=== PATIENT | female | born 1970 | race Caucasian/White ===

== ENCOUNTER 2016-08-24 07:06 | Inpatient (IN) | payer OTHER ==
[~2016-08-24] VITALS: Ht 167.6 cm; Wt 69.9 kg
[2016-08-24 07:06] VITALS: BP 136/72; PULSE 77; RESP 16; TEMP 97.3; O2SAT 100
[2016-08-24] MEDS ORDERED: ASPIRIN 81 MG TAB.CHEW PO ONE (07:15)
--- NOTE | 2016-08-24 07:15 | NUR ---
Placed in room 05 . Placed on air sampling and monitoring, blood pressure machine and pulse oximeter. To gown for exam. Side rails up. Report given to Gloria Baird
--- NOTE | 2016-08-24 07:30 | NUR ---
Patient presents to the emergency department with complaints with sudden onset intermittent substernal nonradiating chest pressure with burning 01/18 which has since resolved during triage. denies SOB, n/v/d. pt states taking zantac and jesus seltzer this morning prior to arrival which may have helped.
[2016-08-24 07:51] LABS: BASOPHILS % (AUTO) 0.4 % (0.0-2.0); EOSINOPHILS # (AUTO) 0.2 K/uL (0.0-0.4); EOSINOPHILS % (AUTO) 2.9 % (0.0-4.0); HEMATOCRIT 38.3 % (36-48); HEMOGLOBIN 12.8 g/dL (12.0-16.0); LYMPHOCYTES % (AUTO) 29.8 % (20.5-51.5); MEAN CORPUSCULAR HEMOGLOBIN 28 pg (27-31); MEAN CORPUSCULAR HGB CONC 33 % (32-36); MEAN CORPUSCULAR VOLUME 84 fL (79.0-98.0); MONOCYTES # (AUTO) 0.5 K/uL (0.0-1.0); MONOCYTES % (AUTO) 7.8 % (1.7-9.3); NEUTROPHILS # (AUTO) 4.1 K/uL (1.8-7.7); NEUTROPHILS % (AUTO) 59.1 % (40.0-70.0); PLATELET COUNT (AUTO) 218 K/uL (130-430); RED BLOOD CELL COUNT(AUTO) 4.55 MIL/uL (4.2-6.2); RED CELL DISTRIBUTION WIDTH 14.1 % (9.0-15.0); WHITE BLOOD COUNT (AUTO) 6.8 K/uL (4.8-10.8)
[2016-08-24 07:55] LABS: CALCIUM 9.1 mg/dL (8.4-11.0); CREATININE 0.67 mg/dL (0.55-1.30); POTASSIUM 3.7 mmol/L (3.5-5.1)
[2016-08-24 07:58] LABS: INR 0.9 (0.8-1.2); PROTHROMBIN TIME 10.2 SECS (9.5-12.5)
[2016-08-24 08:00] LABS: ALBUMIN 3.8 g/dL (3.4-4.8); TOTAL BILIRUBIN 0.6 mg/dL (0.0-1.0); TOTAL PROTEIN, SERUM 7.4 g/dL (6.4-8.3)
--- NOTE | 2016-08-24 08:56 | NUR ---
Medication reconciliation completed with information provided by patient. Any prior medication reconciliation on file was reviewed and corrected.
--- NOTE | 2016-08-24 09:28 | NUR ---
Patient will be admitted to care of DR LOPEZ. Admitted to TELE unit. Will go to room 109 A. Summary report printed. Report WILL BE given to BEDSIDE NURSE.
--- NOTE | 2016-08-24 09:38 | NUR ---
unable to transfer patient at this time, not enough staff, ICU patient will be transferred first
--- NOTE | 2016-08-24 10:04 | NUR ---
Transfer to 109 a via ACLS protocol. Licensed nurse present. IV present no signs or symptoms of infiltration.
--- NOTE | 2016-08-24 10:17 | NUR ---
Admission Note Received patient from ER with diagnosis of Chest Pain. Initial Plan of Care discussed-patient verbalized understanding. Family at bedside. Oriented to room, call light, pain management and safety.
[2016-08-24 10:20] VITALS: BP_SYST 119; BP_SYST 85; BP_DIAS 42; BP_DIAS 77; PULSE 77; RESP 16; TEMP 96.8; O2SAT 100
--- NOTE | 2016-08-24 10:36 | NUR ---
CARDIOLOGY CONSULT, DR MERCADO IS AWARE.
[2016-08-24] MEDS ORDERED: NITROGLYCERIN 0.4 MG TAB.SUBL SL PRN (11:00)
[2016-08-24] MEDS ORDERED: ACETAMINOPHEN 325 MG TABLET PO PRN (11:00)
--- NOTE | 2016-08-24 11:09 | NUR ---
Initial Note Received pt in bed, no s/s of distress or sob noted, pt has no c/o pain at this time, pt in stable condition. Pt has no c/o pain at this time. Pt aaox4, verbal, iv catheter patent, no signs of infection or infiltration noted. Bed at lowest position, call light within reach, will continue to monitor pt for any changes.
[2016-08-24] MEDS ORDERED: PANTOPRAZOLE SODIUM 40 MG TAB PO ONE (12:15)
--- NOTE | 2016-08-24 14:35 | NUR ---
Rounds Pt in bed, no s/s of distress or sob noted, pt has no c/o pain at this time, pt in stable condition, pt resting comfortably, will continue to monitor pt for any changes.
[2016-08-24 15:54] VITALS: BP 116/72; PULSE 72; RESP 17; TEMP 98.7; O2SAT 99
[2016-08-24 17:33] VITALS: BP 116/72; PULSE 70; RESP 17; TEMP 98.7; O2SAT 99
--- NOTE | 2016-08-24 18:23 | NUR ---
CLOSING NOTE Pt in bed, no s/s of distress or sob noted, pt has no c/o pain at this time, pt in stable condition. Pt has no c/o of chest pain at this time. Pt aaox4, verbal, iv catheter patent, no signs of infection or infiltration noted. Bed at lowest position, call light within reach, will endorse care of pt to incoming nurse.
[2016-08-24 20:00] VITALS: BP 127/60; PULSE 81; RESP 18; TEMP 97; O2SAT 100
--- NOTE | 2016-08-24 20:00 | NUR ---
PM Shift Assessment Received patient lying in bed, AAO x4, no acute distress noted, family members at the bedside. Assessment complete, vital signs stable, no complain of pain at this time. IV noted to right AC, saline locked at this time, flushes well, no redness or swelling noted to IV site. No complain of chest pain, education provided to call if she has chest pain. Patient noted ambulatory with steady gait, reminded to call for assistance as needed. Call light is within reach, all fall and safety precautions in place, will continue to monitor for change in patient status.
--- NOTE | 2016-08-24 22:18 | NUR ---
RN Rounds Patient is resting quietly in bed, family members at the bedside. No complain of chest pain at this time. States she has mild headache, refusing medication at this time, ice packs provided for comfort. Encouraged to call with any needs. Call light is within reach, all fall and safety precautions in place, will continue to monitor.
--- NOTE | 2016-08-25 00:17 | NUR ---
RN Rounds Patient is resting quietly in bed, no acute distress noted. Reminded patient that she is NPO for procedure in the morning, she verbalized understanding. Call light is within reach, all fall and safety precautions in place, will continue to monitor.
--- NOTE | 2016-08-25 02:19 | NUR ---
RN Rounds Patient is sleeping, respirations are even and unlabored, no acute distress noted. No non-verbal signs of pain noted at this time. Call light is within reach, all fall and safety precautions in place, will continue to monitor.
--- NOTE | 2016-08-25 04:31 | NUR ---
RN Rounds Patient is sleeping but easily arousable, no acute distress noted. No complain of pain at this time. Encouraged patient to call with any need, she verbalized understanding. Call light is within reach, all fall and safety precautions in place, will continue to monitor.
[2016-08-25 05:06] VITALS: BP 90/55; PULSE 66; RESP 18; TEMP 97; O2SAT 95
[2016-08-25 05:15] VITALS: BP 110/62; PULSE 68
--- NOTE | 2016-08-25 07:22 | NUR ---
Closing Notes Patient is resting quietly in bed, no acute distress noted. Patient is stable, all needs met throughout shift. SBAR report was endorsed to AM nurse at bedside.
--- NOTE | 2016-08-25 07:35 | NUR ---
AM Rounds: Received pt sitting semi-fowlers in bed. No acute signs of distress noted. IV intact to RUE with no redness or swelling noted to site and flushing well. Pt is ambulatory with steady gait to bathroom. Pt denies SOB and chest pain at this time. Pt verbalizes understanding of NPO status pending stress test today. No other needs noted at this time. Call light in reach. Pt able to return demonstrate use of call light. Continue to monitor.
[2016-08-25 08:26] VITALS: BP 94/53; PULSE 58; RESP 16; TEMP 96.8; O2SAT 93
[2016-08-25] MEDS ORDERED: ASPIRIN 81 MG TABLET(ECOTRIN) PO SCH (09:00)
[2016-08-25] MEDS ORDERED: PANTOPRAZOLE SODIUM 40 MG TAB PO SCH (09:00)
--- NOTE | 2016-08-25 09:30 | NUR ---
Pt Off Alvarez: Pt off alvarez to Stress test. Pt is medically stable at this time.
--- NOTE | 2016-08-25 10:38 | NUR ---
Pt Return from Stress Test: Pt return from stress test, no acute signs of distress noted. Call light in reach. Continue to monitor.
[2016-08-25 10:55] VITALS: BP 95/62; PULSE 62; RESP 19; TEMP 96.8; O2SAT 94
--- NOTE | 2016-08-25 11:35 | NUR ---
D/C Patient Patient given medication reconciliation form and D/C instructions. Exit Care provided. Patient verbalized understanding. MD discussed with patient the results and treatment provided. Ambulatory with steady gait for discharge to home. Patient in stable condition, ID band removed. IV catheter removed, intact and dressing applied, no active bleeding. No Rx given per Dr. Antony, pt verbalizes understanding of need to follow up with MD for results of tests. Pt cleared for discharge by Dr. Justin. Patient educated on pain management. All belongings sent with patient.
[2016-08-25 12:00] VITALS: BP 101/61; PULSE 63; RESP 21; TEMP 97.7; O2SAT 100
--- NOTE | 2016-08-30 14:51 | NUR ---
Discharge Follow Up Phone Call [employer] phoned patient, . Patient stated that she was doing well. She has not made a follow up appointment with Dr Antony yet, but stated she will. She prefers to make her own appointments. Patient stated she has no questions or concerns.
== END 2016-08-25 11:30 | disposition home or self-care (01) | DRG 392 ==
LOC: SED 07:06 → SMU 09:08 → STU 09:27
PROVIDERS: ADMIT Internal Medicine; ATTEND Internal Medicine
DX: K21.9 Gastro-esophageal reflux disease without esophagitis (principal); F17.210 Nicotine dependence, cigarettes, uncomplicated; E78.5 Hyperlipidemia, unspecified; Z82.49 Family history of ischemic heart disease and other diseases of the circulatory system
CPT/HCPCS: 36415; 71010; 80053; 80061; 81025; 82550-TC; 83690-TC; 83880; 84443-TC; 84484; 85025; 85610-TC; 85730-TC; 93005; 93017; 99285; G0378